=== PATIENT | male | born 1935 | race Caucasian/White ===

== ENCOUNTER 2024-04-01 10:49 | Emergency (ER) | payer MEDICARE, MEDICAID ==
[~2024-04-01] VITALS: Ht 165.1 cm; Wt 95.2 kg
[~2024-04-01 10:49] MED LIST: ASPIRIN PO; BENI20TA11 OR; DIABETIC MED PO; HCTZ PO; KLOR CON PO; LOPR50TA OR; METAMUCIL PO; POTA10CA2 OR; PRILOSEC PO; ZOCO40TA OR; benicar PO
[2024-04-01] MEDS ORDERED: OMEP-173 PO (11:07)
[2024-04-01] MEDS ORDERED: METO1TAB32 PO (11:07)
[2024-04-01] MEDS ORDERED: GLIM2TAB29 PO (11:07)
[2024-04-01 11:19] VITALS: BP 173/83
[2024-04-01] MEDS: METOPROLOL SUCC *XL* 25MG TAB (TopROL *XL*) PO ONE (11:19)
[2024-04-01] MEDS ORDERED: POTA1TAB23 PO (11:24)
[2024-04-01] MEDS ORDERED: HOME MED LIST COMPLETE! XX SCH (11:25)
[2024-04-01 11:51] LABS: BLOOD UREA NITROGEN 22 MG/DL (9-23); CALCIUM LEVEL 8.5 MG/DL (8.3-10.6); CARBON DIOXIDE LEVEL 27 MMOL/L (20-31); CHLORIDE LEVEL 101 MMOL/L (98-107); CREATININE FOR GFR 0.89 MG/DL (0.70-1.30); GLOMERULAR FILTRATION RATE > 60.0 (>35); GLUCOSE, FASTING 206 MG/DL (74-106); POTASSIUM SERUM 4.5 MMOL/L (3.5-5.1); SODIUM LEVEL 140 MMOL/L (136-145)
[2024-04-01 12:45] VITALS: BP 174/87; TEMP 98
[2024-04-01 12:49] VITALS: O2SAT 98
== END 2024-04-01 13:05 | disposition home or self-care (01) ==
LOC: EDBD 10:49 → M ED 10:49
DX: I10 Essential (primary) hypertension (principal); E11.9 Type 2 diabetes mellitus without complications; I25.2 Old myocardial infarction; Z79.899 Other long term (current) drug therapy